=== PATIENT | female | born 1985 | race Two or more races ===

== ENCOUNTER 2017-02-21 13:58 | Emergency (ER) | payer MEDICAID ==
[~2017-02-21] VITALS: Ht 152.4 cm; Wt 72.6 kg
[2017-02-21 14:06] VITALS: BP 120/98
[2017-02-21] MEDS ORDERED: KETOROLAC TROMETH 60MG/2ML VIAL IM ONE (16:00)
[2017-02-21] MEDS ORDERED: BACITRACIN TOP OINT 1 UD PKG TOP ONE (16:00)
== END 2017-02-21 16:24 | disposition home or self-care (01) ==
LOC: ER 13:58 → EDBD 13:58 → ER 16:24
DX: S50.811A Abrasion of right forearm, initial encounter (principal); S50.312A Abrasion of left elbow, initial encounter; S30.811A Abrasion of abdominal wall, initial encounter; X58.XXXA Exposure to other specified factors, initial encounter; Y93.89 Activity, other specified; Y99.8 Other external cause status; Y92.89 Other specified places as the place of occurrence of the external cause
CPT/HCPCS: 96372; 99283; J1885

== ENCOUNTER 2017-03-24 19:43 | Emergency (ER) | payer MEDICAID ==
[~2017-03-24] VITALS: Ht 154.9 cm; Wt 76.2 kg
[2017-03-24 22:05] VITALS: BP 126/76
[2017-03-24] MEDS ORDERED: KETOROLAC TROMETH 60MG/2ML VIAL IM ONE ×2 (22:30)
== END 2017-03-24 23:50 | disposition home or self-care (01) ==
LOC: EDBD 19:43 → ER 19:48
DX: M79.651 Pain in right thigh (principal); V49.49XA Driver injured in collision with other motor vehicles in traffic accident, initial encounter; Y93.89 Activity, other specified; Y99.8 Other external cause status; Y92.410 Unspecified street and highway as the place of occurrence of the external cause
CPT/HCPCS: 73552; 96372; 99284; J1885

== ENCOUNTER 2017-06-15 12:12 | Emergency (ER) | payer MEDICAID ==
[~2017-06-15] VITALS: Ht 157.5 cm; Wt 84.4 kg
[2017-06-15 15:00] VITALS: BP 154/104
== END 2017-06-15 15:40 | disposition home or self-care (01) ==
LOC: ER 12:12
DX: S39.012A Strain of muscle, fascia and tendon of lower back, initial encounter (principal); I10 Essential (primary) hypertension; X58.XXXA Exposure to other specified factors, initial encounter; Y93.89 Activity, other specified; Y92.89 Other specified places as the place of occurrence of the external cause; Y99.8 Other external cause status

== ENCOUNTER 2017-07-07 09:10 | Emergency (ER) | payer MEDICAID ==
[~2017-07-07] VITALS: Ht 154.9 cm; Wt 85.7 kg
[2017-07-07 10:12] LABS: Basophils # (auto) 0 uL; Basophils % (auto) 0.2 % (0.0-2.0); Eosinophils # (auto) 0 uL; Eosinophils % (auto) 0.4 % (0.0-7.0); Hematocrit 35.6 % (36.0-46.0); Hemoglobin 11.9 g/dL (12.2-16.2); Lymphocytes # (auto) 1.5 uL; Lymphocytes % (auto) 14.8 % (10.0-50.0); Mean Corpuscular Hemoglobin 31.4 pg (28.0-32.0); Mean Corpuscular Hgb Conc. 33.4 g/dL (32.0-36.0); Monocytes # (auto) 0.7 uL; Monocytes % (auto) 6.5 % (0.0-12.0); Neutrophils % (auto) 78.1 % (37.0-80.0); Platelet Count (auto) 279 10^3/uL (140-450); Red Blood Cells 3.79 10^6/uL (4.0-5.20); Red Cell Distribution Width 14.6 % (11.8-14.3); White Blood Cell 10.3 10^3/uL (4.4-10.8)
[2017-07-07 10:37] LABS: Urine Blood Trace /uL (Negative); Urine Specific Gravity 1.009 (1.001-1.035)
[2017-07-07 10:39] LABS: Albumin 3.7 g/dL (3.4-5.0); BUN/Creatinine Ratio 7.9; Bilirubin, Total 0.4 mg/dL (0.2-1.0); Calcium 8.3 mg/dL (8.5-10.1); Potassium 3.5 mmol/L (3.5-5.1); Total Protein 7.2 g/dL (6.4-8.2)
[2017-07-07 10:40] LABS: Urine WBC 18 /hpf (0 - 5)
[2017-07-07 10:41] LABS: Urine Bacteria MODERATE /hpf (None Seen)
[2017-07-07 12:08] VITALS: BP 129/78
== END 2017-07-07 15:14 | disposition left against medical advice (07) ==
LOC: ER 09:10
DX: R10.9 Unspecified abdominal pain (principal); Z53.21 Procedure and treatment not carried out due to patient leaving prior to being seen by health care provider
CPT/HCPCS: 36415; 80053; 81001; 85025

== ENCOUNTER 2017-07-11 09:43 | Emergency (ER) | payer MEDICAID ==
[~2017-07-11] VITALS: Ht 154.9 cm; Wt 81.6 kg
[2017-07-11 09:56] VITALS: BP 122/85
[2017-07-11] MEDS ORDERED: KETOROLAC TROMETH 60MG/2ML VIAL IM ONE (11:45)
== END 2017-07-11 13:52 | disposition home or self-care (01) ==
LOC: ER 09:43
DX: N39.0 Urinary tract infection, site not specified (principal); N20.0 Calculus of kidney; I10 Essential (primary) hypertension; Z98.51 Tubal ligation status
CPT/HCPCS: 74176; 81002; 96372; 99284; J1885

== ENCOUNTER 2018-03-05 10:04 | Emergency (ER) | payer MEDICAID ==
[~2018-03-05] VITALS: Ht 154.9 cm; Wt 88.0 kg
[2018-03-05 10:15] VITALS: BP 151/84
== END 2018-03-05 13:29 | disposition home or self-care (01) ==
LOC: ER 10:04
DX: F41.9 Anxiety disorder, unspecified (principal); I10 Essential (primary) hypertension; F32.9 Major depressive disorder, single episode, unspecified